=== PATIENT | male | born 1960 | race Caucasian/White ===

== ENCOUNTER 2017-11-18 19:41 | Emergency (ER) | payer MEDICAID ==
[~2017-11-18] VITALS: Ht 180.3 cm; Wt 64.0 kg
[~2017-11-18 19:41] MED LIST: AMOX1TAB64 PO; ASPI-515 PO; DOCU-131 PO; FERR325T16 PO; IPRA3AMP NPPB; LORA-446 PO
[2017-11-18 19:43] VITALS: BP 150/98
[2017-11-18 20:34] LABS: BASOPHILS # (AUTO) 0.03 x10^3/uL (0-0.1); BASOPHILS % (AUTO) 1 % (0-1); EOSINOPHILS # (AUTO) 0.01 x10^3/uL (0-0.4); EOSINOPHILS % (AUTO) 0 % (1-7); LYMPHOCYTES # (AUTO) 1.04 x10^3/uL (1-3.4); LYMPHOCYTES % (AUTO) 17 % (22-44); MD NO; MEAN CORPUSCULAR HEMOGLOBIN 26.8 pg (27.5-34.5); MEAN CORPUSCULAR HGB CONC 32.8 g/dL (33.2-36.2); MEAN CORPUSCULAR VOLUME 81.7 fL (81-97); MEAN PLATELET VOLUME 6.1 fL (7.4-10.4); MONOCYTES # (AUTO) 0.52 x10^3/uL (0.2-0.8); MONOCYTES % (AUTO) 8 % (2-9); NEUTROPHILS # (AUTO) 4.74 x10^3/uL (1.8-6.8); NEUTROPHILS % (AUTO) 75 % (42-75); PLATELET COUNT 263 x10^3/uL (130-400); RED BLOOD COUNT 4.28 x10^6/uL (4.38-5.82); RED CELL DISTRIBUTION WIDTH 19.4 % (9.4-14.8)
[2017-11-18 20:42] LABS: ALBUMIN 3.2 g/dL (3.4-5.0); ANION GAP 12 mmol/L (5-15); CALCIUM 8.8 mg/dL (8.5-10.1); CHLORIDE 99 mmol/L (98-107); CREATININE 0.95 mg/dL (0.7-1.3)
[2017-11-18 20:46] LABS: TROPONIN I < 0.015 ng/mL (0.000-0.045)
== END 2017-11-18 21:21 | disposition home or self-care (01) ==
LOC: ED 21:06
DX: R07.89 Other chest pain (principal); I10 Essential (primary) hypertension; J45.998 Other asthma; M19.90 Unspecified osteoarthritis, unspecified site
CPT/HCPCS: 36415; 71045; 80048; 82040; 84484; 85025; 93005; 99285

== ENCOUNTER 2018-08-13 15:38 | Inpatient (IN) | payer MEDICAID ==
[~2018-08-13] VITALS: Ht 180.3 cm; Wt 61.2 kg
[~2018-08-13 15:38] MED LIST changes: -IPRA3AMP NPPB; +IPRA3AMP30 NPPB
[2018-08-13] MEDS ORDERED: THIAMINE 100MG TABLET ONE (16:15)
[2018-08-13] MEDS ORDERED: LORazepam 2 MG/ML, 1ML ONE (16:15)
[2018-08-13] MEDS ORDERED: L.E.T SOLUTION TP ONE ×2 (16:25→16:30)
[2018-08-13] MEDS ORDERED: ACETAMINOPHEN 500 MG TABLET ONE (16:25)
[2018-08-13] MEDS ORDERED: SODIUM CHLORIDE FLUSH 10ML SYR IVF ONE (16:30)
[2018-08-13] MEDS ORDERED: ACETAMINOPHEN 500 MG TABLET PO ONE (16:30)
[2018-08-13] MEDS ORDERED: SODIUM CHLORIDE 0.9% 1,000ML IVBOLUS ONE ×2 (16:30→18:00)
[2018-08-13] MEDS ORDERED: THIAMINE 100MG TABLET PO ONE (16:30)
[2018-08-13] MEDS ORDERED: LORazepam 2 MG/ML, 1ML IVPush ONE (16:30)
[2018-08-13 16:47] LABS: INTERNATIONAL NORMALIZED RATIO 1.04 (0.93-1.1); PROTHROMBIN TIME 10.7 Seconds (9.6-11.5)
[2018-08-13 16:48] LABS: ALBUMIN 3.1 g/dL (3.4-5.0); ANION GAP 12 mmol/L (5-15); CALCIUM 7.9 mg/dL (8.5-10.1); CHLORIDE 100 mmol/L (98-107)
[2018-08-13 16:54] LABS: ALANINE AMINOTRANSFERASE 26 U/L (12-78); ALKALINE PHOSPHATASE 92 U/L (45-117); BILIRUBIN,TOTAL 0.3 mg/dL (0.2-1.0); CREATININE 0.58 mg/dL (0.7-1.3); TROPONIN I < 0.015 ng/mL (0.000-0.045)
[2018-08-13 17:13] LABS: MEAN CORPUSCULAR HEMOGLOBIN 24.9 pg (27.5-34.5); MEAN CORPUSCULAR HGB CONC 32.7 g/dL (33.2-36.2); MEAN CORPUSCULAR VOLUME 76.3 fL (81-97); MEAN PLATELET VOLUME 6.5 fL (7.4-10.4); PLATELET COUNT 112 x10^3/uL (130-400); RED BLOOD COUNT 4.05 x10^6/uL (4.38-5.82); RED CELL DISTRIBUTION WIDTH 19.9 % (9.4-14.8)
[2018-08-13 17:17] LABS: MD YES
[2018-08-13 17:22] LABS: ANISOCYTOSIS 1+; BAND#(MANUAL) 0.99 x10^3/uL; BANDS%(MANUAL) 22 % (0-7); BASOS#(MANUAL) 0.09 x10^3/uL (0-0.1); BASOS% (MANUAL) 2 % (0-1); LYMPH#(MANUAL) 0.59 x10^3/uL (1-3.4); LYMPHS% (MANUAL) 13 % (22-44); METAMYELOCYTES# (MANUAL) 0.18 x10^3/uL (0-0); METAMYELOCYTES% (MANUAL) 4 % (0-1); MICROCYTOSIS 1+; MONOS#(MANUAL) 0.18 x10^3/uL (0.3-2.7); MONOS% (MANUAL) 4 % (2-9); MYELOCYTES# (MANUAL) 0.05 x10^3/uL (0-0); MYELOCYTES% (MANUAL) 1 % (0-0); SEG#(MANUAL) 2.43 x10^3/uL (1.8-6.8); SEGS% (MANUAL) 54 % (42-75)
[2018-08-13 17:23] LABS: <PLATELET ESTIMATE> DECREASED; <PLT MORPHOLOGY> NORMAL PLT MORPH; HYPOCHROMIA 1+; PMNS WITH VACUOLES 1+; TOXIC GRAN 1+
[2018-08-13 17:54] LABS: MICROSCOPIC AUTO
[2018-08-13] MEDS ORDERED: VANCOMYCIN 1,500 MG in SODIUM CHLORIDE 0.9% 250 ML IV ONE (18:00)
[2018-08-13] MEDS ORDERED: VANCOMYCIN PER PHARMACY MC ONE (18:00)
[2018-08-13] MEDS ORDERED: PIPERACILLIN/TAZO/PMX 3.375GM 50 ML ONE (18:00)
[2018-08-13] MEDS ORDERED: PIPERACILLIN/TAZO/PMX 3.375GM 50 ML IVPB ONE (18:00)
[2018-08-13 18:10] LABS: CULTURE INDICATED? NO
[2018-08-13] MEDS ORDERED: DIPH,PERTUSS(ACELL),TET VAC/PF 0.5 ML IM-VACC ONE ×2 (18:30→18:32)
[2018-08-13] MEDS ORDERED: VANCOMYCIN PER PHARMACY MC PRN (20:00)
[2018-08-13] MEDS ORDERED: ONDANSETRON ODT 4 MG PO PRN (20:30)
[2018-08-13] MEDS ORDERED: GUAIFENESIN/DM 200-20MG, 10ML UDC PO PRN (20:30)
[2018-08-13] MEDS ORDERED: DOCUSATE 100 MG CAPSULE PO PRN (20:30)
[2018-08-13] MEDS ORDERED: THIAMINE 100 MG, MVI ADULT 10 ML, FOLIC ACID 1 MG in D5%-0.9% NACL 1,000 ML IV SCH (20:30)
[2018-08-13 20:33] VITALS: BP 124/73
[2018-08-13] MEDS ORDERED: PHARMACOKINETIC MONITORING MC PRN (21:30)
[2018-08-13] MEDS ORDERED: ALBUTEROL/IPRATROPIUM 2.5MG/0.5MG, 3 ML NPPB PRN (21:30)
[2018-08-13] MEDS ORDERED: PHARMACOKINETIC CONSULTATION MC ONE (21:30)
[2018-08-14] MEDS: LORazepam 2 MG/ML, 1ML IVPush PRN ×2 (00:05→03:11)
[2018-08-14] MEDS: NICOTINE 21 MG/24 HR PATCH.TD24 TD SCH (00:05)
[2018-08-14] MEDS: PIPERACILLIN/TAZO/PMX 3.375GM 50 ML IV SCH ×4 (00:44→18:48)
[2018-08-14] MEDS: SODIUM CHLORIDE 0.9% 1,000 ML IV SCH (00:44)
[2018-08-14 01:45] VITALS: BP 147/80
[2018-08-14] MEDS ORDERED: LORazepam 1MG TABLET PO PRN (05:30)
[2018-08-14] MEDS ORDERED: LORazepam 2 MG/ML, 1ML IV PRN ×3 (05:30)
[2018-08-14] MEDS: LORazepam 2 MG/ML, 1ML IV PRN (06:10)
[2018-08-14 06:12] LABS: MEAN CORPUSCULAR HEMOGLOBIN 25.4 pg (27.5-34.5); MEAN CORPUSCULAR HGB CONC 33.3 g/dL (33.2-36.2); MEAN CORPUSCULAR VOLUME 76.3 fL (81-97); RED BLOOD COUNT 3.68 x10^6/uL (4.38-5.82); RED CELL DISTRIBUTION WIDTH 19.2 % (9.4-14.8)
[2018-08-14 06:16] LABS: ANION GAP 11 mmol/L (5-15); CALCIUM 8.4 mg/dL (8.5-10.1); CHLORIDE 102 mmol/L (98-107)
[2018-08-14] MEDS: ALBUTEROL/IPRATROPIUM 2.5MG/0.5MG, 3 ML NPPB SCH ×2 (06:55→21:00)
[2018-08-14 07:00] VITALS: BP 145/85
[2018-08-14 07:18] LABS: PLATELET COUNT 82 x10^3/uL (130-400)
[2018-08-14 07:20] LABS: MD YES
[2018-08-14 07:23] LABS: BASOS#(MANUAL) 0.06 x10^3/uL (0-0.1); BASOS% (MANUAL) 1 % (0-1); LYMPH#(MANUAL) 0.75 x10^3/uL (1-3.4); LYMPHS% (MANUAL) 13 % (22-44); METAMYELOCYTES# (MANUAL) 0.12 x10^3/uL (0-0); METAMYELOCYTES% (MANUAL) 2 % (0-1); MONOS#(MANUAL) 0.41 x10^3/uL (0.3-2.7); MONOS% (MANUAL) 7 % (2-9); MYELOCYTES# (MANUAL) 0.06 x10^3/uL (0-0); MYELOCYTES% (MANUAL) 1 % (0-0)
[2018-08-14 07:24] LABS: BAND#(MANUAL) 1.86 x10^3/uL; BANDS%(MANUAL) 32 % (0-7); SEG#(MANUAL) 2.55 x10^3/uL (1.8-6.8); SEGS% (MANUAL) 44 % (42-75)
[2018-08-14 07:25] LABS: ANISOCYTOSIS 1+; HYPOCHROMIA 1+; MICROCYTOSIS 1+; STOMATOCYTES 1+; TOXIC GRAN 1+
[2018-08-14 07:26] LABS: <PLATELET ESTIMATE> DECREASED; <PLT MORPHOLOGY> NORMAL PLT MORPH; PMNS WITH VACUOLES 1+
[2018-08-14] MEDS: ACETAMINOPHEN 325 MG TABLET PO PRN ×2 (07:43→20:07)
[2018-08-14] MEDS: VANCOMYCIN 1,300 MG in SODIUM CHLORIDE 0.9% 250 ML IV SCH ×2 (07:43→19:39)
[2018-08-14] MEDS: POTASSIUM CHLORIDE 20 MEQ TAB.ER.PRT PO SCH ×2 (07:43→17:41)
[2018-08-14] MEDS: LORazepam 1MG TABLET PO PRN ×4 (07:43→17:41)
[2018-08-14 14:37] VITALS: BP 153/86
[2018-08-14] MEDS ORDERED: POTASSIUM CHLORIDE 20 MEQ, MAGNESIUM SULFATE 1 GM, FOLIC ACID 1 MG, THIAMINE 200 MG, MV... IV SCH (18:00)
[2018-08-14 18:56] LABS: ANION GAP 8 mmol/L (5-15); CALCIUM 8.7 mg/dL (8.5-10.1); CHLORIDE 99 mmol/L (98-107); CREATININE 0.47 mg/dL (0.7-1.3)
[2018-08-14 19:47] VITALS: BP 141/82
[2018-08-15] MEDS: NICOTINE 21 MG/24 HR PATCH.TD24 TD SCH (00:27)
[2018-08-15] MEDS: PIPERACILLIN/TAZO/PMX 3.375GM 50 ML IV SCH ×4 (00:27→17:25)
[2018-08-15] MEDS: SODIUM CHLORIDE 0.9% 1,000 ML IV SCH (00:28)
[2018-08-15 02:53] VITALS: BP 150/86
[2018-08-15 06:07] LABS: ALANINE AMINOTRANSFERASE 32 U/L (12-78); ALBUMIN 2.8 g/dL (3.4-5.0); ANION GAP 10 mmol/L (5-15); CALCIUM 8.6 mg/dL (8.5-10.1); CHLORIDE 100 mmol/L (98-107); CREATININE 0.45 mg/dL (0.7-1.3)
[2018-08-15 06:09] LABS: ALKALINE PHOSPHATASE 96 U/L (45-117); BILIRUBIN,TOTAL 0.8 mg/dL (0.2-1.0); TOTAL PROTEIN 7.1 g/dL (6.4-8.2)
[2018-08-15 06:12] LABS: MEAN CORPUSCULAR HEMOGLOBIN 25.8 pg (27.5-34.5); MEAN CORPUSCULAR HGB CONC 32.6 g/dL (33.2-36.2); MEAN CORPUSCULAR VOLUME 79.2 fL (81-97); MEAN PLATELET VOLUME 7.4 fL (7.4-10.4); PLATELET COUNT 95 x10^3/uL (130-400); RED BLOOD COUNT 3.86 x10^6/uL (4.38-5.82); RED CELL DISTRIBUTION WIDTH 19.4 % (9.4-14.8)
[2018-08-15] MEDS ORDERED: MAGNESIUM SULFATE PMX 2GM/50ML 50 ML IV ONE (06:30)
[2018-08-15] MEDS ORDERED: POTASSIUM CHLORIDE 40 MEQ in SODIUM CHLORIDE 0.9% 500 ML IV ONE (06:30)
[2018-08-15 06:42] LABS: MD YES
[2018-08-15] MEDS: VANCOMYCIN 1,300 MG in SODIUM CHLORIDE 0.9% 250 ML IV SCH ×2 (06:46→18:40)
[2018-08-15 06:48] LABS: <PLATELET ESTIMATE> DECREASED; <PLT MORPHOLOGY> NORMAL PLT MORPH; ANISOCYTOSIS 1+; HYPOCHROMIA 1+; LYMPH#(MANUAL) 0.42 x10^3/uL (1-3.4); LYMPHS% (MANUAL) 6 % (22-44); MICROCYTOSIS 1+; MONOS#(MANUAL) 0.28 x10^3/uL (0.3-2.7); MONOS% (MANUAL) 4 % (2-9); REACTIVE LYMPHS # (MANUAL) 0.14 x10^3/uL (0-0); REACTIVE LYMPHS % (MANUAL) 2 % (0-0); SEG#(MANUAL) 6.16 x10^3/uL (1.8-6.8); SEGS% (MANUAL) 88 % (42-75)
[2018-08-15] MEDS: ALBUTEROL/IPRATROPIUM 2.5MG/0.5MG, 3 ML NPPB SCH ×2 (06:59→20:58)
[2018-08-15 07:53] VITALS: BP 159/78
[2018-08-15] MEDS: POTASSIUM CHLORIDE 20 MEQ TAB.ER.PRT PO SCH ×2 (08:01→17:24)
[2018-08-15] MEDS: LORazepam 1MG TABLET PO PRN ×3 (08:07→21:25)
[2018-08-15] MEDS: ACETAMINOPHEN 325 MG TABLET PO PRN (08:07)
[2018-08-15] MEDS: LORazepam 0.5MG TABLET PO PRN (14:35)
[2018-08-15 14:49] VITALS: BP 158/86
[2018-08-15 20:37] VITALS: BP 151/83
[2018-08-15] MEDS: POTASSIUM CHLORIDE 20 MEQ, MAGNESIUM SULFATE 1 GM, FOLIC ACID 1 MG, THIAMINE 200 MG, MV... IV SCH (21:45)
[2018-08-16] MEDS: PIPERACILLIN/TAZO/PMX 3.375GM 50 ML IV SCH ×4 (00:22→18:01)
[2018-08-16] MEDS: LORazepam 1MG TABLET PO PRN ×4 (00:22→13:05)
[2018-08-16] MEDS: NICOTINE 21 MG/24 HR PATCH.TD24 TD SCH (00:22)
[2018-08-16 01:39] VITALS: BP 137/82
[2018-08-16 05:37] LABS: ALBUMIN 2.9 g/dL (3.4-5.0); ANION GAP 12 mmol/L (5-15); CALCIUM 9.1 mg/dL (8.5-10.1); CHLORIDE 99 mmol/L (98-107)
[2018-08-16] MEDS ORDERED: MAGNESIUM SULFATE PMX 2GM/50ML 50 ML IV ONE (07:00)
[2018-08-16 07:20] VITALS: BP 135/95
[2018-08-16] MEDS: POTASSIUM CHLORIDE 20 MEQ TAB.ER.PRT PO SCH ×2 (07:51→15:52)
[2018-08-16] MEDS: ACETAMINOPHEN 325 MG TABLET PO PRN (07:51)
[2018-08-16] MEDS: ALBUTEROL/IPRATROPIUM 2.5MG/0.5MG, 3 ML NPPB SCH ×2 (08:00→19:38)
[2018-08-16] MEDS ORDERED: LORazepam 0.5MG TABLET ONE (09:58)
[2018-08-16] MEDS: LORazepam 2 MG/ML, 1ML IV PRN ×3 (11:44→14:36)
[2018-08-16] MEDS: MAGNESIUM OXIDE 400 MG TABLET PO SCH (11:47)
[2018-08-16] MEDS: CHLORDIAZEPOXIDE 10 MG CAPSULE PO SCH ×2 (14:00→21:00)
[2018-08-16 14:34] VITALS: BP 153/96
[2018-08-16 18:44] VITALS: BP 147/92
[2018-08-16] MEDS ORDERED: CHLORDIAZEPOXIDE 10 MG CAPSULE PO SCH (21:00)
[2018-08-17] MEDS: NICOTINE 21 MG/24 HR PATCH.TD24 TD SCH
[2018-08-17] MEDS: PIPERACILLIN/TAZO/PMX 3.375GM 50 ML IV SCH ×3 (02:03→14:25)
[2018-08-17] MEDS: POTASSIUM CHLORIDE 20 MEQ, MAGNESIUM SULFATE 1 GM, FOLIC ACID 1 MG, THIAMINE 200 MG, MV... IV SCH ×2 (02:03→02:04)
[2018-08-17] MEDS: LORazepam 2 MG/ML, 1ML IV PRN (02:03)
[2018-08-17 02:49] VITALS: BP 115/77
[2018-08-17 05:05] LABS: ALANINE AMINOTRANSFERASE 33 U/L (12-78); ALBUMIN 2.9 g/dL (3.4-5.0); ANION GAP 8 mmol/L (5-15); CALCIUM 9.2 mg/dL (8.5-10.1); CHLORIDE 100 mmol/L (98-107)
[2018-08-17 05:07] LABS: ALKALINE PHOSPHATASE 98 U/L (45-117); BILIRUBIN,TOTAL 0.7 mg/dL (0.2-1.0); TOTAL PROTEIN 7.2 g/dL (6.4-8.2)
[2018-08-17 05:29] LABS: MEAN CORPUSCULAR HEMOGLOBIN 25.6 pg (27.5-34.5); MEAN CORPUSCULAR HGB CONC 32.4 g/dL (33.2-36.2); MEAN CORPUSCULAR VOLUME 79.1 fL (81-97); MEAN PLATELET VOLUME 6.8 fL (7.4-10.4); PLATELET COUNT 150 x10^3/uL (130-400); RED BLOOD COUNT 3.96 x10^6/uL (4.38-5.82); RED CELL DISTRIBUTION WIDTH 19.8 % (9.4-14.8)
[2018-08-17 06:38] VITALS: BP 135/87
[2018-08-17] MEDS: ALBUTEROL/IPRATROPIUM 2.5MG/0.5MG, 3 ML NPPB SCH ×2 (06:55→21:00)
[2018-08-17 07:25] LABS: MD YES
[2018-08-17 07:28] LABS: BAND#(MANUAL) 0.05 x10^3/uL; BANDS%(MANUAL) 1 % (0-7); EOS% (MANUAL) 2 % (1-7); REACTIVE LYMPHS % (MANUAL) 2 % (0-0); SEG#(MANUAL) 2.95 x10^3/uL (1.8-6.8); SEGS% (MANUAL) 59 % (42-75)
[2018-08-17 07:29] LABS: ANISOCYTOSIS 1+; HYPOCHROMIA 1+; LYMPHS% (MANUAL) 22 % (22-44); MICROCYTOSIS 1+; MONOS% (MANUAL) 14 % (2-9)
[2018-08-17] MEDS ORDERED: CHLORDIAZEPOXIDE 10 MG CAPSULE PO PRN (07:30)
[2018-08-17 07:32] LABS: <PLATELET ESTIMATE> ADEQUATE; <PLT MORPHOLOGY> NORMAL PLT MORPH
[2018-08-17] MEDS: POTASSIUM CHLORIDE 20 MEQ TAB.ER.PRT PO SCH ×2 (09:07→17:00)
[2018-08-17] MEDS: MAGNESIUM OXIDE 400 MG TABLET PO SCH (09:07)
[2018-08-17 14:05] VITALS: BP 111/67
[2018-08-17] MEDS: LORazepam 0.5MG TABLET PO PRN (14:25)
[2018-08-17 18:42] VITALS: BP 144/89
[2018-08-17] MEDS: AMOXICILLIN/CLAV 875-125MG TABLET PO SCH (21:00)
[2018-08-18] MEDS: NICOTINE 21 MG/24 HR PATCH.TD24 TD SCH
[2018-08-18] MEDS: POTASSIUM CHLORIDE 20 MEQ, MAGNESIUM SULFATE 1 GM, FOLIC ACID 1 MG, THIAMINE 200 MG, MV... IV SCH (01:10)
[2018-08-18 03:00] VITALS: BP 144/89
[2018-08-18 05:59] LABS: ALBUMIN 2.9 g/dL (3.4-5.0); ANION GAP 11 mmol/L (5-15); CALCIUM 9.4 mg/dL (8.5-10.1); CHLORIDE 105 mmol/L (98-107); CREATININE 0.48 mg/dL (0.7-1.3)
[2018-08-18 06:41] VITALS: BP 123/73
[2018-08-18] MEDS: POTASSIUM CHLORIDE 20 MEQ TAB.ER.PRT PO SCH ×2 (08:44→16:57)
[2018-08-18] MEDS: AMOXICILLIN/CLAV 875-125MG TABLET PO SCH ×2 (08:45→20:06)
[2018-08-18] MEDS: MAGNESIUM OXIDE 400 MG TABLET PO SCH (08:45)
[2018-08-18] MEDS: ALBUTEROL/IPRATROPIUM 2.5MG/0.5MG, 3 ML NPPB SCH ×2 (08:58→21:00)
[2018-08-18 12:32] VITALS: BP 131/78
[2018-08-18 19:43] VITALS: BP 148/85
[2018-08-19] MEDS: NICOTINE 21 MG/24 HR PATCH.TD24 TD SCH (00:46)
[2018-08-19 01:32] VITALS: BP 152/83
[2018-08-19 07:42] VITALS: BP 153/92
[2018-08-19] MEDS: AMOXICILLIN/CLAV 875-125MG TABLET PO SCH (08:18)
[2018-08-19] MEDS: POTASSIUM CHLORIDE 20 MEQ TAB.ER.PRT PO SCH (08:18)
[2018-08-19] MEDS: MAGNESIUM OXIDE 400 MG TABLET PO SCH (08:18)
[2018-08-19] MEDS ORDERED: THIAMINE 100MG TABLET PO SCH (09:00)
[2018-08-19] MEDS: ALBUTEROL/IPRATROPIUM 2.5MG/0.5MG, 3 ML NPPB SCH (09:49)
== END 2018-08-19 11:10 | disposition home or self-care (01) | DRG 871 ==
LOC: ED 18:13 → EDIP 18:14 → ED 18:33 → 4EST 19:57
PROVIDERS: ADMIT Internal Medicine; ATTEND Internal Medicine
DX: A41.9 Sepsis, unspecified organism (principal); J69.0 Pneumonitis due to inhalation of food and vomit; G93.41 Metabolic encephalopathy; J96.01 Acute respiratory failure with hypoxia; E43 Unspecified severe protein-calorie malnutrition; F10.239 Alcohol dependence with withdrawal, unspecified; G40.89 Other seizures; Z68.1 Body mass index [BMI] 19.9 or less, adult; E83.42 Hypomagnesemia; E87.6 Hypokalemia; R65.20 Severe sepsis without septic shock; I10 Essential (primary) hypertension; F17.200 Nicotine dependence, unspecified, uncomplicated; F10.220 Alcohol dependence with intoxication, uncomplicated; D69.6 Thrombocytopenia, unspecified; J45.909 Unspecified asthma, uncomplicated; S00.219A Abrasion of unspecified eyelid and periocular area, initial encounter; Y90.8 Blood alcohol level of 240 mg/100 ml or more; S00.81XA Abrasion of other part of head, initial encounter; D50.9 Iron deficiency anemia, unspecified; F41.9 Anxiety disorder, unspecified; W18.39XA Other fall on same level, initial encounter; Z86.73 Personal history of transient ischemic attack (TIA), and cerebral infarction without residual deficits; Z59.0 Homelessness; I25.2 Old myocardial infarction; Z91.010 Allergy to peanuts; Z79.899 Other long term (current) drug therapy; Z79.1 Long term (current) use of non-steroidal anti-inflammatories (NSAID); Z79.2 Long term (current) use of antibiotics; Y93.89 Activity, other specified; Y92.89 Other specified places as the place of occurrence of the external cause; Y99.8 Other external cause status
CPT/HCPCS: 36415; 84145; 99285; J7042; J7121; J7620; 70450; 71045; 72125; 80048; 80053; 80202; 80307; 81001; 82040; 83605; 83690; 83735; 84100; 84484; 85025; 85610; 85730; 87040; 90715; 93005; 93306; 94640; G0378; J2543; J3370; J3411; J3475; J3480; J2060; J7030; J7040; J7050

== ENCOUNTER 2018-09-16 19:34 | Inpatient (IN) | payer MEDICAID ==
[~2018-09-16] VITALS: Ht 180.3 cm; Wt 56.3 kg
[2018-09-16] MEDS ORDERED: ALBUTEROL/IPRATROPIUM 2.5MG/0.5MG, 3 ML ONE (19:55)
[2018-09-16] MEDS ORDERED: ALBUTEROL/IPRATROPIUM 2.5MG/0.5MG, 3 ML NPPB ONE (20:00)
[2018-09-16] MEDS: PLEASE ENTER HEIGHT AND WEIGHT MC SCH (20:00)
[2018-09-16] MEDS ORDERED: ALBU18HF INH (20:01)
[2018-09-16 20:18] LABS: MD YES; MEAN CORPUSCULAR VOLUME 79.5 fL (81-97); MEAN PLATELET VOLUME 5.6 fL (7.4-10.4); PLATELET COUNT 267 x10^3/uL (130-400); RED BLOOD COUNT 3.78 x10^6/uL (4.38-5.82); RED CELL DISTRIBUTION WIDTH 21.9 % (9.4-14.8)
[2018-09-16 20:28] LABS: ALANINE AMINOTRANSFERASE 33 U/L (12-78); ANION GAP 12 mmol/L (5-15); CALCIUM 8.1 mg/dL (8.5-10.1); CHLORIDE 100 mmol/L (98-107); CREATININE 0.61 mg/dL (0.7-1.3)
[2018-09-16 20:33] LABS: ALKALINE PHOSPHATASE 94 U/L (45-117); BILIRUBIN,TOTAL 0.2 mg/dL (0.2-1.0); TOTAL PROTEIN 7.2 g/dL (6.4-8.2)
[2018-09-16 20:44] LABS: BAND#(MANUAL) 0.13 x10^3/uL; BANDS%(MANUAL) 2 % (0-7); BASOS#(MANUAL) 0.07 x10^3/uL (0-0.1); BASOS% (MANUAL) 1 % (0-1); EOS#(MANUAL) 0.13 x10^3/uL (0.0-0.4); EOS% (MANUAL) 2 % (1-7); LYMPH#(MANUAL) 1.85 x10^3/uL (1-3.4); LYMPHS% (MANUAL) 28 % (22-44); METAMYELOCYTES# (MANUAL) 0.13 x10^3/uL (0-0); METAMYELOCYTES% (MANUAL) 2 % (0-1); MONOS#(MANUAL) 0.46 x10^3/uL (0.3-2.7); MONOS% (MANUAL) 7 % (2-9); MYELOCYTES# (MANUAL) 0.07 x10^3/uL (0-0); MYELOCYTES% (MANUAL) 1 % (0-0); SEG#(MANUAL) 3.89 x10^3/uL (1.8-6.8); SEGS% (MANUAL) 59 % (42-75)
[2018-09-16 20:46] LABS: ANISOCYTOSIS 1+; MICROCYTOSIS 1+
[2018-09-16 20:48] LABS: <PLATELET ESTIMATE> ADEQUATE; <PLT MORPHOLOGY> NORMAL PLT MORPH; PMNS WITH VACUOLES 1+; TOXIC GRAN 1+
[2018-09-16 22:18] LABS: AMPHETAMINE SCREEN, URINE Negative (Negative); BARBITURATE SCREEN, URINE Negative (Negative); BENZODIAZEPINE SCREEN, URINE Negative (Negative); CANNABINOID SCREEN, URINE Negative (Negative); COCAINE SCREEN, URINE Negative (Negative); METHADONE SCREEN, URINE Negative (Negative); OPIATE SCREEN, URINE Negative (Negative)
[2018-09-17] MEDS ORDERED: methylPREDNISolone SOD SUCC 125 MG/2 ML ONE (00:30)
[2018-09-17] MEDS ORDERED: methylPREDNISolone SOD SUCC 125 MG/2 ML IVPush ONE (00:30)
[2018-09-17] MEDS: SODIUM CHLORIDE 0.9% 1,000 ML IV SCH ×2 (00:56→05:59)
[2018-09-17] MEDS ORDERED: POLYETHYLENE GLYCOL 17 GM PACKET PO PRN (01:00)
[2018-09-17] MEDS ORDERED: TRAZODONE 50MG TABLET PO PRN (01:00)
[2018-09-17] MEDS ORDERED: HYDROcodone/CHLORPHENIR ORAL SUSP PO PRN (01:00)
[2018-09-17] MEDS: ALBUTEROL SULFATE 2.5 MG/3 ML HHN SCH ×5 (01:00→21:00)
[2018-09-17] MEDS ORDERED: GUAIFENESIN/DM 200-20MG, 10ML UDC PO PRN (01:00)
[2018-09-17] MEDS ORDERED: ONDANSETRON 2MG/ML, 2ML IVPush PRN (01:00)
[2018-09-17] MEDS: methylPREDNISolone SOD SUCC 40 MG/ML IVPush SCH ×4 (01:00→20:38)
[2018-09-17 01:17] LABS: TROPONIN I < 0.015 ng/mL (0.000-0.045)
[2018-09-17] MEDS ORDERED: LORazepam 2 MG/ML, 1ML IVPush PRN (01:30)
[2018-09-17] MEDS ORDERED: POTASSIUM CHLORIDE 20 MEQ TAB.ER.PRT PO ONE (01:30)
[2018-09-17] MEDS ORDERED: ALBUTEROL SULFATE 2.5 MG/3 ML NPPB PRN (01:30)
[2018-09-17 01:42] VITALS: BP 117/72
[2018-09-17] MEDS: NICOTINE 7 MG/24 HR PATCH.TD24 TD SCH (01:58)
[2018-09-17] MEDS: ENOXAPARIN 40 MG/0.4 ML SQ SCH (01:58)
[2018-09-17] MEDS: POTASSIUM CHLORIDE 20 MEQ, MAGNESIUM SULFATE 2 GM, THIAMINE 200 MG, MVI ADULT 10 ML, FO... IV SCH ×5 (01:58→16:20)
[2018-09-17] MEDS: PLEASE ENTER HEIGHT AND WEIGHT MC SCH (03:58)
[2018-09-17 06:13] LABS: TROPONIN I < 0.015 ng/mL (0.000-0.045)
[2018-09-17 06:54] VITALS: BP 99/58
[2018-09-17] MEDS: ALBUTEROL SULFATE 2.5 MG/3 ML NPPB SCH ×4 (07:00→19:39)
[2018-09-17 08:11] LABS: TROPONIN I < 0.015 ng/mL (0.000-0.045)
[2018-09-17] MEDS: DOXYCYCLINE 100MG TABLET PO SCH ×2 (09:56→20:38)
[2018-09-17] MEDS: FAMOTIDINE 20 MG TABLET PO SCH ×2 (09:56→20:38)
[2018-09-17] MEDS ORDERED: LORazepam 2 MG/ML, 1ML IV PRN ×2 (11:30)
[2018-09-17 13:24] VITALS: BP 150/82
[2018-09-17] MEDS: LORazepam 1MG TABLET PO PRN ×3 (13:26→20:39)
[2018-09-17] MEDS: IRON SUCROSE COMPLEX 100MG/5ML IV SCH (13:26)
[2018-09-17] MEDS: ACETAMINOPHEN 500 MG TABLET PO PRN (17:50)
[2018-09-17 20:08] VITALS: BP 131/73
[2018-09-18] MEDS: POTASSIUM CHLORIDE 20 MEQ, MAGNESIUM SULFATE 2 GM, THIAMINE 200 MG, MVI ADULT 10 ML, FO... IV SCH (01:33)
[2018-09-18] MEDS: NICOTINE 7 MG/24 HR PATCH.TD24 TD SCH (01:34)
[2018-09-18] MEDS: ENOXAPARIN 40 MG/0.4 ML SQ SCH (01:34)
[2018-09-18] MEDS: LORazepam 1MG TABLET PO PRN (01:35)
[2018-09-18 02:42] VITALS: BP 136/74
[2018-09-18] MEDS: SODIUM CHLORIDE 0.9% 1,000 ML IV SCH ×2 (05:47→17:20)
[2018-09-18 05:51] LABS: ANION GAP 7 mmol/L (5-15); CALCIUM 8.3 mg/dL (8.5-10.1); CHLORIDE 102 mmol/L (98-107)
[2018-09-18 05:57] LABS: MEAN CORPUSCULAR HEMOGLOBIN 26.3 pg (27.5-34.5); MEAN CORPUSCULAR HGB CONC 32.7 g/dL (33.2-36.2); MEAN CORPUSCULAR VOLUME 80.4 fL (81-97); MEAN PLATELET VOLUME 6.2 fL (7.4-10.4); PLATELET COUNT 234 x10^3/uL (130-400); RED BLOOD COUNT 3.43 x10^6/uL (4.38-5.82); RED CELL DISTRIBUTION WIDTH 21.4 % (9.4-14.8)
[2018-09-18] MEDS: ALBUTEROL SULFATE 2.5 MG/3 ML HHN SCH ×3 (06:00→16:00)
[2018-09-18 06:37] LABS: MD YES
[2018-09-18 06:42] LABS: LYMPH#(MANUAL) 0.52 x10^3/uL (1-3.4); LYMPHS% (MANUAL) 6 % (22-44); MONOS#(MANUAL) 0.87 x10^3/uL (0.3-2.7); MONOS% (MANUAL) 10 % (2-9); SEG#(MANUAL) 7.31 x10^3/uL (1.8-6.8); SEGS% (MANUAL) 84 % (42-75)
[2018-09-18 06:43] LABS: <PLATELET ESTIMATE> ADEQUATE; <PLT MORPHOLOGY> NORMAL PLT MORPH; ANISOCYTOSIS 1+; HYPOCHROMIA 1+; MICROCYTOSIS 1+
[2018-09-18] MEDS: ALBUTEROL SULFATE 2.5 MG/3 ML NPPB SCH ×6 (07:00→19:09)
[2018-09-18 07:24] VITALS: BP 153/83
[2018-09-18] MEDS: ACETAMINOPHEN 500 MG TABLET PO PRN ×3 (10:01→20:04)
[2018-09-18] MEDS: IRON SUCROSE COMPLEX 100MG/5ML IV SCH (10:02)
[2018-09-18] MEDS: FAMOTIDINE 20 MG TABLET PO SCH ×2 (10:02→20:04)
[2018-09-18] MEDS: LORazepam 0.5MG TABLET PO PRN ×4 (10:02→20:04)
[2018-09-18] MEDS: DOXYCYCLINE 100MG TABLET PO SCH ×2 (10:02→20:04)
[2018-09-18 13:09] VITALS: BP 152/83
[2018-09-18 20:50] VITALS: BP 138/79
[2018-09-18] MEDS: LORazepam 2 MG/ML, 1ML IV PRN (22:28)
[2018-09-19] MEDS: NICOTINE 7 MG/24 HR PATCH.TD24 TD SCH (01:49)
[2018-09-19] MEDS: ENOXAPARIN 40 MG/0.4 ML SQ SCH (01:49)
[2018-09-19 02:07] VITALS: BP 146/81
[2018-09-19] MEDS: LORazepam 1MG TABLET PO PRN ×4 (04:14→20:14)
[2018-09-19] MEDS: ACETAMINOPHEN 500 MG TABLET PO PRN ×3 (04:17→20:14)
[2018-09-19] MEDS: SODIUM CHLORIDE 0.9% 1,000 ML IV SCH ×2 (06:23→20:14)
[2018-09-19] MEDS: ALBUTEROL SULFATE 2.5 MG/3 ML NPPB SCH ×4 (08:15→20:00)
[2018-09-19 08:27] VITALS: BP 139/87
[2018-09-19] MEDS: FOLIC ACID 1 MG TABLET PO SCH (08:35)
[2018-09-19] MEDS: FAMOTIDINE 20 MG TABLET PO SCH ×2 (08:35→20:14)
[2018-09-19] MEDS: MULTIVITAMIN 1 TABLET PO SCH (08:35)
[2018-09-19] MEDS: IRON SUCROSE COMPLEX 100MG/5ML IV SCH (08:35)
[2018-09-19] MEDS: DOXYCYCLINE 100MG TABLET PO SCH ×2 (08:35→20:14)
[2018-09-19] MEDS: THIAMINE 100MG TABLET PO SCH (08:35)
[2018-09-19] MEDS: LORazepam 2 MG/ML, 1ML IV PRN (08:42)
[2018-09-19 15:26] VITALS: BP 144/79
[2018-09-19 20:28] VITALS: BP 168/94
[2018-09-19 23:50] VITALS: BP 145/81
[2018-09-20 02:05] VITALS: BP 152/88
[2018-09-20] MEDS: ENOXAPARIN 40 MG/0.4 ML SQ SCH (02:08)
[2018-09-20] MEDS: NICOTINE 7 MG/24 HR PATCH.TD24 TD SCH (02:08)
[2018-09-20] MEDS: LORazepam 0.5MG TABLET PO PRN ×2 (02:10→20:17)
[2018-09-20 07:55] VITALS: BP 138/79
[2018-09-20] MEDS: ALBUTEROL SULFATE 2.5 MG/3 ML NPPB SCH ×4 (08:20→20:00)
[2018-09-20] MEDS: FOLIC ACID 1 MG TABLET PO SCH (09:31)
[2018-09-20] MEDS: THIAMINE 100MG TABLET PO SCH (09:31)
[2018-09-20] MEDS: FAMOTIDINE 20 MG TABLET PO SCH ×2 (09:32→20:04)
[2018-09-20] MEDS: DOXYCYCLINE 100MG TABLET PO SCH ×2 (09:32→20:04)
[2018-09-20] MEDS: MULTIVITAMIN 1 TABLET PO SCH (09:32)
[2018-09-20] MEDS: SODIUM CHLORIDE 0.9% 1,000 ML IV SCH (09:33)
[2018-09-20] MEDS: IRON SUCROSE COMPLEX 100MG/5ML IV SCH (09:33)
[2018-09-20] MEDS: ACETAMINOPHEN 500 MG TABLET PO PRN ×2 (09:49→20:04)
[2018-09-20] MEDS: LORazepam 1MG TABLET PO PRN ×3 (09:49→15:52)
[2018-09-20 10:00] LABS: ANION GAP 8 mmol/L (5-15); CHLORIDE 104 mmol/L (98-107); CREATININE 0.56 mg/dL (0.7-1.3)
[2018-09-20 10:04] LABS: MEAN CORPUSCULAR HEMOGLOBIN 25.7 pg (27.5-34.5); MEAN CORPUSCULAR HGB CONC 32.1 g/dL (33.2-36.2); MEAN CORPUSCULAR VOLUME 80.1 fL (81-97); MEAN PLATELET VOLUME 6.6 fL (7.4-10.4); PLATELET COUNT 258 x10^3/uL (130-400); RED BLOOD COUNT 4.28 x10^6/uL (4.38-5.82); RED CELL DISTRIBUTION WIDTH 21.1 % (9.4-14.8)
[2018-09-20 10:06] LABS: BASOPHILS # (AUTO) 0.06 x10^3/uL (0-0.1); BASOPHILS % (AUTO) 1 % (0-1); EOSINOPHILS # (AUTO) 0.08 x10^3/uL (0-0.4); EOSINOPHILS % (AUTO) 2 % (1-7); LYMPHOCYTES # (AUTO) 1.07 x10^3/uL (1-3.4); LYMPHOCYTES % (AUTO) 21 % (22-44); MD SCAN; MONOCYTES # (AUTO) 0.28 x10^3/uL (0.2-0.8); MONOCYTES % (AUTO) 6 % (2-9); NEUTROPHILS % (AUTO) 71 % (42-75)
[2018-09-20] MEDS ORDERED: POTASSIUM CHLORIDE 20 MEQ TAB.ER.PRT PO ONE (12:30)
[2018-09-20 14:26] VITALS: BP 140/76
[2018-09-20 20:27] VITALS: BP 149/81
[2018-09-21 01:21] VITALS: BP 160/96
[2018-09-21] MEDS: ENOXAPARIN 40 MG/0.4 ML SQ SCH (01:22)
[2018-09-21] MEDS: NICOTINE 7 MG/24 HR PATCH.TD24 TD SCH (01:22)
[2018-09-21] MEDS: LORazepam 0.5MG TABLET PO PRN ×2 (01:30→22:57)
[2018-09-21] MEDS: ACETAMINOPHEN 500 MG TABLET PO PRN ×4 (02:23→22:53)
[2018-09-21 07:36] VITALS: BP 134/92
[2018-09-21] MEDS: ALBUTEROL SULFATE 2.5 MG/3 ML NPPB SCH (07:53)
[2018-09-21] MEDS: IRON SUCROSE COMPLEX 100MG/5ML IV SCH (08:44)
[2018-09-21] MEDS: MULTIVITAMIN 1 TABLET PO SCH (08:44)
[2018-09-21] MEDS: FAMOTIDINE 20 MG TABLET PO SCH ×2 (08:44→20:20)
[2018-09-21] MEDS: DOXYCYCLINE 100MG TABLET PO SCH ×2 (08:44→20:20)
[2018-09-21] MEDS: THIAMINE 100MG TABLET PO SCH (08:44)
[2018-09-21] MEDS: FOLIC ACID 1 MG TABLET PO SCH (08:44)
[2018-09-21] MEDS: LORazepam 1MG TABLET PO PRN (09:05)
[2018-09-21] MEDS ORDERED: ALBUTEROL SULFATE 2.5 MG/3 ML NPPB PRN (12:00)
[2018-09-21 13:31] VITALS: BP 146/84
[2018-09-21 21:16] VITALS: BP 140/82
[2018-09-22] MEDS: NICOTINE 7 MG/24 HR PATCH.TD24 TD SCH (01:34)
[2018-09-22] MEDS: ENOXAPARIN 40 MG/0.4 ML SQ SCH (01:34)
[2018-09-22 01:37] VITALS: BP 145/93
[2018-09-22 06:10] LABS: ANION GAP 12 mmol/L (5-15); CALCIUM 9.2 mg/dL (8.5-10.1); CHLORIDE 105 mmol/L (98-107)
[2018-09-22 06:13] LABS: CREATININE 0.51 mg/dL (0.7-1.3)
[2018-09-22 07:32] VITALS: BP 151/95
[2018-09-22] MEDS ORDERED: MAGNESIUM SULFATE PMX 2GM/50ML 50 ML IV ONE (08:00)
[2018-09-22] MEDS: FAMOTIDINE 20 MG TABLET PO SCH (08:31)
[2018-09-22] MEDS: FOLIC ACID 1 MG TABLET PO SCH (08:31)
[2018-09-22] MEDS: THIAMINE 100MG TABLET PO SCH (08:31)
[2018-09-22] MEDS: MULTIVITAMIN 1 TABLET PO SCH (08:31)
[2018-09-22] MEDS: DOXYCYCLINE 100MG TABLET PO SCH (08:31)
[2018-09-22] MEDS: ACETAMINOPHEN 500 MG TABLET PO PRN (08:34)
[2018-09-22] MEDS ORDERED: MULT1TAB60 PO (11:43)
[2018-09-22] MEDS ORDERED: NICO-485 TD (11:43)
[2018-09-22] MEDS ORDERED: FOLI-17 PO (11:43)
[2018-09-22] MEDS ORDERED: THIA100T67 PO (11:43)
[2018-09-22] MEDS ORDERED: ALBU18HF INH (11:43)
[2018-09-22 13:08] VITALS: BP 157/99
== END 2018-09-22 14:22 | disposition home or self-care (01) | DRG 189 ==
LOC: ED 22:30 → EDIP 09-17 00:25 → OBSVTOIN 09-17 00:56 → 4EST 09-17 01:19
PROVIDERS: ADMIT Hospitalist; ATTEND Hospitalist
DX: J96.21 Acute and chronic respiratory failure with hypoxia (principal); E43 Unspecified severe protein-calorie malnutrition; G92 Toxic encephalopathy; Z68.1 Body mass index [BMI] 19.9 or less, adult; F10.239 Alcohol dependence with withdrawal, unspecified; J44.1 Chronic obstructive pulmonary disease with (acute) exacerbation; D50.9 Iron deficiency anemia, unspecified; E87.6 Hypokalemia; F10.229 Alcohol dependence with intoxication, unspecified; F17.210 Nicotine dependence, cigarettes, uncomplicated; I10 Essential (primary) hypertension; J06.9 Acute upper respiratory infection, unspecified; Z59.0 Homelessness; Z86.73 Personal history of transient ischemic attack (TIA), and cerebral infarction without residual deficits
CPT/HCPCS: 36415; 99285; J7042; J7613; J7620; 71045; 80048; 80053; 80307; 82728; 83540; 83550; 83735; 84100; 84466; 84484; 85025; 93005; 94640; 96374; G0378; J1650; J1756; J3411; J3475; J3480; J2060; J2920; J2930; J7030

== ENCOUNTER 2019-12-30 19:34 | Emergency (ER) | payer MEDICAID ==
[~2019-12-30] VITALS: Ht 175.3 cm; Wt 78.0 kg
[~2019-12-30 19:34] MED LIST changes: +ALBU18HF INH; +FOLI-17 PO; +MULT1TAB60 PO; +NICO-485 TD; +THIA100T67 PO
--- NOTE | 2019-12-30 19:45 | NUR ---
Pt presents to ed via [facility] c/o [facility] this pm. "i tripped over the damn toilet and fell into the tub." +head trauma, -loc. Pt amb w/ steady gait into ed. Neuroloigically fully intact, excluding slurred speech. Admits to "drinking some beers" tonight. Pt baseline copd and supposed to be on O2 at home.
--- NOTE | 2019-12-30 21:12 | NUR ---
Pt to ct at this time.
--- NOTE | 2019-12-30 22:22 | NUR ---
Pt sleeping comfortabl on marj. Rr even and unlabored. Nadn.
[2019-12-30 23:16] VITALS: BP 99/65
== END 2019-12-30 23:38 | disposition home or self-care (01) ==
LOC: ED 20:45
DX: S00.83XA Contusion of other part of head, initial encounter (principal); I10 Essential (primary) hypertension; J45.909 Unspecified asthma, uncomplicated; F17.200 Nicotine dependence, unspecified, uncomplicated; F10.220 Alcohol dependence with intoxication, uncomplicated; W18.39XA Other fall on same level, initial encounter; Y93.89 Activity, other specified; Y92.098 Other place in other non-institutional residence as the place of occurrence of the external cause; Y99.8 Other external cause status; Y90.0 Blood alcohol level of less than 20 mg/100 ml
CPT/HCPCS: 70450; 99284

== ENCOUNTER 2021-06-06 19:40 | Emergency (ER) | payer MEDICAID ==
[~2021-06-06] VITALS: Ht 172.7 cm; Wt 85.0 kg
[~2021-06-06 19:40] MED LIST changes: -ASPI-515 PO; +ASPI-963 PO; +FERR324T23 PO; -FERR325T16 PO; -FOLI-17 PO; +FOLI1TAB32 PO; +MULT-449 PO; -MULT1TAB60 PO
--- NOTE | 2021-06-06 20:22 | NUR ---
PT. TO ROOM FROM WALL WITH [place] AT THIS TIME.
--- NOTE | 2021-06-06 20:26 | NUR ---
BIB BY [facility] FOR RIB PAIN. WITH ASSESSMENT EMS NOTED SBP 70/PALP WITH HR OF 70. ECG SHOWING Q WAVES AND PEAKED T WAVES GIVEN 1L NS WITH INTERVAL IMPROVEMENT IN SBP TO 90 ON ARRIVAL PALE : HR 75, 78/49 PLACED ON HOSPITAL SCIENTIST, ECG OBTAINED ERP TO BEDSIDE- TO DRAW I-STAT LAB, BOLUS 2ND LITER RECENT STROKE AND KS ALSO WITH COUGH AND FEVER REPORTS VACCINATED FOR COVID
[2021-06-06] MEDS ORDERED: SODIUM CHLORIDE FLUSH 10ML SYR IVF ONE (20:30)
[2021-06-06] MEDS ORDERED: SODIUM CHLORIDE 0.9% 1,000 ML IV ONE (20:30)
[2021-06-06] MEDS ORDERED: SODIUM CHLORIDE 0.9% 1,000ML IVBOLUS ONE (20:30)
--- NOTE | 2021-06-06 21:01 | NUR ---
SECOND PIV PLACED FROM WHICH ADDITIONAL LABS DRAWN (I-STAT ALREADY RESULTED)
[2021-06-06 21:15] LABS: BASOPHILS % (AUTO) 1 % (0-1); EOSINOPHILS % (AUTO) 2 % (1-7); LYMPHOCYTES % (AUTO) 25 % (22-44); MEAN CORPUSCULAR HEMOGLOBIN 33.9 pg (27.5-34.5); MEAN CORPUSCULAR HGB CONC 34.3 g/dL (33.2-36.2); MEAN PLATELET VOLUME 6.4 fL (7.4-10.4); MONOCYTES % (AUTO) 10 % (2-9); NEUTROPHILS % (AUTO) 61 % (42-75); PLATELET COUNT 162 x10^3/uL (130-400); RED BLOOD COUNT 2.51 x10^6/uL (4.38-5.82); RED CELL DISTRIBUTION WIDTH 13.1 % (9.4-14.8)
[2021-06-06 21:26] LABS: ALANINE AMINOTRANSFERASE 42 U/L (12-78); ALBUMIN 2.1 g/dL (3.4-5.0); ANION GAP 9 mmol/L (5-15); CHLORIDE 103 mmol/L (98-107); CREATININE 0.42 mg/dL (0.7-1.3)
--- NOTE | 2021-06-06 21:28 | NUR ---
ASSISTED PATIENT BACK INTO STRETCHER AFTER +BM.
[2021-06-06 21:31] LABS: ALKALINE PHOSPHATASE 62 U/L (45-117); BILIRUBIN,TOTAL 0.2 mg/dL (0.2-1.0); TOTAL PROTEIN 5.1 g/dL (6.4-8.2); TROPONIN I 0.017 ng/mL (0.000-0.045)
[2021-06-06 23:00] VITALS: BP 100/61
--- NOTE | 2021-06-06 23:27 | NUR ---
PATIENT AMBULATORY WITH CANE. DENIES DIZZINESS AND STATES HE FEELS NORMAL. WILL DC.
--- NOTE | 2021-06-06 23:46 | NUR ---
Patient given discharge instructions and they have confirmed that they understand the instructions. Patient ambulatory with steady gait. NAD, all questions answered appropriately, denies additional needs at this time. No personal belongings left in room after discharge. Provided patient with taxi back to apartment as patient left his wallet at home.
== END 2021-06-06 23:48 | disposition home or self-care (01) ==
LOC: ED 20:10
DX: R07.89 Other chest pain (principal); E86.0 Dehydration; I10 Essential (primary) hypertension; I25.2 Old myocardial infarction; J45.909 Unspecified asthma, uncomplicated; F17.200 Nicotine dependence, unspecified, uncomplicated; Z86.73 Personal history of transient ischemic attack (TIA), and cerebral infarction without residual deficits
CPT/HCPCS: 71045; 80047; 80053; 83880; 84484; 85025; 93005; 96360; 99285; J7030

== ENCOUNTER 2021-06-11 16:19 | Emergency (ER) | payer MEDICAID ==
[~2021-06-11] VITALS: Ht 180.3 cm; Wt 65.0 kg
--- NOTE | 2021-06-11 16:42 | NUR ---
BIBA FOR SOB AND BLE EDEMA STARTING X1 HOUR AGO. PT POSTIONED TO COMFORT IN BED. ATTACHED TO MONITORS. VSS. IRAM. DR. ASHTON EVALUATED AT BEDSIDE.
[2021-06-11] MEDS ORDERED: SODIUM CHLORIDE FLUSH 10ML SYR IVF ONE (17:00)
[2021-06-11] MEDS ORDERED: ASPIRIN 81 MG TABLET CHEW PO ONE (17:00)
--- NOTE | 2021-06-11 17:07 | NUR ---
US TO BEDSIDE. CHRISTIANO
[2021-06-11 17:16] LABS: MICROSCOPIC NOT IND
[2021-06-11] MEDS ORDERED: ALBUTEROL/IPRATROPIUM 2.5MG/0.5MG, 3 ML NPPB ONE (17:30)
[2021-06-11] MEDS ORDERED: ASPIRIN 81 MG TABLET CHEW ONE (17:38)
[2021-06-11] MEDS ORDERED: ALBUTEROL/IPRATROPIUM 2.5MG/0.5MG, 3 ML ONE (17:38)
--- NOTE | 2021-06-11 17:47 | NUR ---
PT MEDICATED PER EMAR. VSS. CYDNEYN.
[2021-06-11 17:49] LABS: BASOPHILS % (AUTO) 1 % (0-1); EOSINOPHILS % (AUTO) 2 % (1-7); LYMPHOCYTES % (AUTO) 29 % (22-44); MEAN CORPUSCULAR HEMOGLOBIN 34.1 pg (27.5-34.5); MEAN CORPUSCULAR HGB CONC 34.5 g/dL (33.2-36.2); MEAN PLATELET VOLUME 6.2 fL (7.4-10.4); MONOCYTES % (AUTO) 8 % (2-9); NEUTROPHILS % (AUTO) 61 % (42-75); PLATELET COUNT 219 x10^3/uL (130-400); RED CELL DISTRIBUTION WIDTH 13.3 % (9.4-14.8)
[2021-06-11 17:56] LABS: ALBUMIN 2.3 g/dL (3.4-5.0); ANION GAP 9 mmol/L (5-15); CHLORIDE 106 mmol/L (98-107)
[2021-06-11 18:09] LABS: ALANINE AMINOTRANSFERASE 36 U/L (12-78); ALKALINE PHOSPHATASE 73 U/L (45-117); BILIRUBIN,TOTAL 0.2 mg/dL (0.2-1.0); TOTAL PROTEIN 5.9 g/dL (6.4-8.2); TROPONIN I < 0.015 ng/mL (0.000-0.045)
[2021-06-11] MEDS ORDERED: MAGNESIUM SULFATE PMX 2GM/50ML 50 ML IV ONE (18:30)
[2021-06-11] MEDS ORDERED: MAGNESIUM SULFATE PMX 2GM/50ML 50 ML ONE (18:53)
--- NOTE | 2021-06-11 19:02 | NUR ---
pt sitting up in bed eating. vss. nadn. medicated per emar.
--- NOTE | 2021-06-11 19:46 | NUR ---
DR. ASHTON TO BEDSIDE FOR EVALUATION.
[2021-06-11 21:33] VITALS: BP 94/61
--- NOTE | 2021-06-11 21:35 | NUR ---
Patient given discharge instructions and they have confirmed that they understand the instructions. Patient ambulatory with steady gait. NAD, all questions answered appropriately, denies additional needs at this time. No personal belongings left in room after discharge.
== END 2021-06-11 21:35 | disposition home or self-care (01) ==
LOC: ED 18:06
DX: J44.9 Chronic obstructive pulmonary disease, unspecified (principal); R06.00 Dyspnea, unspecified; R60.0 Localized edema; E88.09 Other disorders of plasma-protein metabolism, not elsewhere classified; E87.6 Hypokalemia; E46 Unspecified protein-calorie malnutrition; I10 Essential (primary) hypertension; I25.2 Old myocardial infarction; F17.200 Nicotine dependence, unspecified, uncomplicated; Z86.73 Personal history of transient ischemic attack (TIA), and cerebral infarction without residual deficits
CPT/HCPCS: 36415; 71045; 80053; 81003; 83735; 83880; 84443; 84484; 85025; 93005; 93970; 94640; 96365; 99285; J3475; J7512